=== PATIENT | female | born 1965 | race Caucasian/White ===

== ENCOUNTER 2016-10-10 19:04 | Emergency (ER) | payer OTHER ==
[~2016-10-10] VITALS: Ht 162.6 cm; Wt 104.0 kg
[~2016-10-10 19:04] MED LIST: ADVAIR 250/501 DISK IH; ADVAIR HFA120 INHAL1 IH; ADVAIR HFA120 INHALA IH; ALBUTEROL17 GM IH; ALBUTEROL2.5 MG/3 M IH; Advair HFA 115/21 IH; BACTRIM,SEPT1 TABLET PO; BUPROPION XL300 MG PO; CLEOCIN150 MG PO; DELTASONE20 MG PO; DUONEB 2.5-0.5 M3 ML IH; DUONEB3 ML IH; FLEXERIL10 MG PO; FLEXERIL5 MG PO; HYCODAN SYRUP480 ML PO; IBUPROFEN800 MG PO; INDOCIN25 MG PO; LEVAQUIN750 MG PO; MELATONIN10 M1 PO; NAPROSYN500 MG PO; NASONEX17 GM NS; NORCO 5/3251 TABLET PO; NORCO 7.5/321 TABLET PO; OMEPRAZOLE20 MG PO; PERCOCET 5/31 TABLET PO; PREDNISONE10 M1 PO; PREDNISONE10 MG PO; PREDNISONE20 MG PO; PRILOSEC40 MG PO; PROAIR HFA8.5 GM IH; PROMETHAZINE HC25 M1 PO; PROTONIX40 MG PO; RANITIDINE HCL; RANITIDINE HCL150 MG PO; TESSALON200 MG PO; TRAZODONE HCL100 MG PO; ULTRAM50 MG PO; VALIUM10 MG PO; VICODIN 5-3001 EACH PO; WELLBUTRIN XL300 MG PO; ZITHROMAX Z-PA250 MG PO; ZITHROMAX250 MG PO
[2016-10-10 19:44] LABS: HEMATOCRIT 36.6 % (36.0-46.0); MCHC 33.3 G/DL (30.0-36.0); MCV 83.9 FL (83-99); MEAN PLAT.VOLUME 10.4 uM^3 (9.5-12.4); PLATELET COUNT 296 K/uL (156-360); RBC DIS.WIDTH-CV 13.2 % (11.8-14.6); RBC DIS.WIDTH-SD 39.5 % (39-53); RED BLOOD COUNT 4.36 M/uL (3.80-5.20); WHITE BLOOD COUNT 7.1 K/uL (4.1-10.2)
[2016-10-10 19:57] LABS: CHLORIDE 107 mEq/L (99-109); POTASSIUM 3.3 mEq/L (3.7-5.4); SODIUM 141 mEq/L (136-147)
[2016-10-10 19:59] LABS: GLUCOSE 110 mg/dL (70-99)
[2016-10-10 20:00] LABS: ANION GAP 8 MEQ/L (2-14)
[2016-10-10 20:03] LABS: GFR ESTIMATE (CALCULATED) > 59 mL/min/
[2016-10-10 20:04] LABS: UREA NITROGEN (BUN) 5 mg/dL (9-23)
[2016-10-10 22:18] LABS: INFLUENZA A VIRAL ANTIGEN NEGATIVE; INFLUENZA B VIRAL ANTIGEN NEGATIVE
[2016-10-10] MEDS ORDERED: PREDNISONE20 MG PO (22:32)
[2016-10-10 22:55] VITALS: BP 140/69
== END 2016-10-10 22:57 | disposition home or self-care (01) ==
LOC: RME 19:04 → EME 19:04 → RME 22:57
PROVIDERS: Nurse Practitioner Family
DX: J06.9 Acute upper respiratory infection, unspecified (principal); J45.909 Unspecified asthma, uncomplicated; F17.200 Nicotine dependence, unspecified, uncomplicated
CPT/HCPCS: 71020; 80048; 85027; 87502; 93005; 94640; 99281; 99284; J7512

== ENCOUNTER 2016-12-16 14:59 | Emergency (ER) | payer OTHER ==
[~2016-12-16] VITALS: Ht 162.6 cm; Wt 106.2 kg
[2016-12-16 15:43] LABS: HEMATOCRIT 40.6 % (36.0-46.0); MCH 27.9 PG (29.0-34.0); MCHC 33.5 G/DL (30.0-36.0); MCV 83.4 FL (83-99); MEAN PLAT.VOLUME 10.5 uM^3 (9.5-12.4); PLATELET COUNT 274 K/uL (156-360); RBC DIS.WIDTH-CV 12.4 % (11.8-14.6); RBC DIS.WIDTH-SD 37.6 % (39-53); RED BLOOD COUNT 4.87 M/uL (3.80-5.20); WHITE BLOOD COUNT 6.6 K/uL (4.1-10.2)
[2016-12-16 15:50] LABS: ADD MIUA? YES; BILIRUBIN NEGATIVE; BLOOD MODERATE; COLOR STRAW ((YELLOW)); GLUCOSE (STRIP) NEGATIVE; KETONES NEGATIVE; LEUKOCYTES NEGATIVE; NITRITE NEGATIVE; PROTEIN (STRIP) NEGATIVE; SPECIFIC GRAVITY 1.004 (1.000-1.030); UROBILINOGEN 0.2 MG/DL (0.2-1.0)
[2016-12-16 15:56] LABS: BACTERIA RARE /HPF; EPITHELIAL CELLS RARE /HPF; MUCUS NONE SEEN /LPF; RED BLOOD CELLS 0-5 /HPF (0-5); UCUL ADDED? NO; WHITE BLOOD CELLS 0-5 /HPF (0-5)
[2016-12-16 16:05] LABS: CHLORIDE 103 mEq/L (99-109); POTASSIUM 3.2 mEq/L (3.7-5.4); SODIUM 138 mEq/L (136-147)
[2016-12-16 16:08] LABS: GLUCOSE 116 mg/dL (70-99)
[2016-12-16 16:09] LABS: ANION GAP 8 MEQ/L (2-14)
[2016-12-16 16:10] LABS: TOTAL BILIRUBIN 0.9 mg/dL (0.0-1.0)
[2016-12-16 16:11] LABS: ALKALINE PHOSPHATASE 88 IU/L (3-129); GFR ESTIMATE (CALCULATED) > 59 mL/min/
[2016-12-16 16:12] LABS: UREA NITROGEN (BUN) 7 mg/dL (9-23)
[2016-12-16 17:32] LABS: INFLUENZA A VIRAL ANTIGEN NEGATIVE; INFLUENZA B VIRAL ANTIGEN NEGATIVE
[2016-12-16] MEDS ORDERED: BENTYL20 MG PO (18:12)
[2016-12-16] MEDS ORDERED: ZOFRAN ODT4 MG PO (18:12)
[2016-12-16] MEDS ORDERED: BACLOFEN10 MG PO (18:12)
[2016-12-16 18:17] VITALS: BP 135/779
== END 2016-12-16 18:35 | disposition home or self-care (01) ==
LOC: EME 14:59
PROVIDERS: Nurse Practitioner Family
DX: A08.4 Viral intestinal infection, unspecified (principal); E87.6 Hypokalemia; Z87.891 Personal history of nicotine dependence
CPT/HCPCS: 71020; 74020; 80053; 81003; 85027; 87502; 99281; 99284; J1885

== ENCOUNTER 2017-02-12 19:33 | Emergency (ER) | payer OTHER ==
[~2017-02-12 19:33] MED LIST changes: +BACLOFEN10 MG PO; +BENTYL20 MG PO; +ZOFRAN ODT4 MG PO
== END 2017-02-12 19:48 | disposition left against medical advice (07) ==
LOC: EME 19:33
DX: R06.9 Unspecified abnormalities of breathing (principal); Z53.21 Procedure and treatment not carried out due to patient leaving prior to being seen by health care provider

== ENCOUNTER 2017-05-14 10:57 | Emergency (ER) | payer OTHER ==
[~2017-05-14] VITALS: Ht 162.6 cm; Wt 107.0 kg
[2017-05-14] MEDS ORDERED: PREDNISONE20 MG PO (14:42)
[2017-05-14 15:00] VITALS: BP 157/85
== END 2017-05-14 15:00 | disposition home or self-care (01) ==
LOC: EME 10:57
DX: J40 Bronchitis, not specified as acute or chronic (principal); F17.200 Nicotine dependence, unspecified, uncomplicated; I10 Essential (primary) hypertension
CPT/HCPCS: 71020

== ENCOUNTER 2017-05-30 | Emergency (ER) | payer OTHER ==
[~2017-05-30] VITALS: Ht 162.6 cm; Wt 105.3 kg
[2017-05-30 02:47] VITALS: BP 147/93
== END 2017-05-30 02:49 | disposition home or self-care (01) ==
LOC: EME
DX: R21 Rash and other nonspecific skin eruption (principal); F17.200 Nicotine dependence, unspecified, uncomplicated
CPT/HCPCS: 99281; 99285; J1100

== ENCOUNTER 2017-11-18 22:28 | Emergency (ER) | payer OTHER ==
[~2017-11-18] VITALS: Ht 162.6 cm; Wt 105.2 kg
[2017-11-18 22:53] LABS: HEMATOCRIT 38.4 % (36.0-46.0); HEMOGLOBIN 12.8 G/DL (11.9-15.5); MCH 28.6 PG (29.0-34.0); MCHC 33.3 G/DL (30.0-36.0); MCV 85.9 FL (83-99); PLATELET COUNT 319 K/uL (156-360); RBC DIS.WIDTH-CV 13.4 % (11.8-14.6); RBC DIS.WIDTH-SD 41.9 % (39-53); RED BLOOD COUNT 4.47 M/uL (3.80-5.20); WHITE BLOOD COUNT 9.7 K/uL (4.1-10.2)
[2017-11-18 23:02] LABS: CHLORIDE 105 mEq/L (99-109); POTASSIUM 4.1 mEq/L (3.7-5.4); SODIUM 140 mEq/L (136-147)
[2017-11-18 23:04] LABS: GLUCOSE 199 mg/dL (70-99)
[2017-11-18 23:08] LABS: CREATININE 0.9 mg/dL (0.6-1.3); GFR ESTIMATE (CALCULATED) > 59 mL/min/
[2017-11-18 23:09] LABS: UREA NITROGEN (BUN) 12 mg/dL (9-23)
[2017-11-18 23:14] LABS: TROP-I INTERPRETATION NEGATIVE; TROPONIN-I < 0.01 ng/mL (0.0-0.30)
[2017-11-19] MEDS ORDERED: SINGULAIR10 MG PO (01:45)
[2017-11-19] MEDS ORDERED: HYCODAN SYRUP480 ML PO (01:45)
[2017-11-19 02:30] VITALS: BP 124/72
== END 2017-11-19 02:33 | disposition home or self-care (01) ==
LOC: EME 22:28
DX: J20.9 Acute bronchitis, unspecified (principal); J45.909 Unspecified asthma, uncomplicated; F17.200 Nicotine dependence, unspecified, uncomplicated; Z88.6 Allergy status to analgesic agent; Z88.0 Allergy status to penicillin; Z88.5 Allergy status to narcotic agent
CPT/HCPCS: 71046; 71250; 80048; 84484; 85027; 93005; 94640; 99281; 99285; J1100

== ENCOUNTER 2018-02-14 10:47 | Emergency (ER) | payer OTHER ==
[~2018-02-14] VITALS: Ht 162.6 cm; Wt 105.3 kg
[~2018-02-14 10:47] MED LIST changes: +SINGULAIR10 MG PO
[2018-02-14 11:46] LABS: BASOPHIL (%) 0.4 % (0-1); EOSINOPHIL (%) 2.7 % (0-5); EOSINOPHIL COUNT 0.2 K/uL (0-0.3); HEMATOCRIT 38.3 % (36.0-46.0); IMMATURE GRANULOCYTE (%) 0.4 % (0.0-0.7); LYMPHOCYTE (%) 24.3 % (15-42); LYMPHOCYTE COUNT 1.9 K/uL (1.0-2.8); MCH 29.5 PG (29.0-34.0); MCHC 33.9 G/DL (30.0-36.0); MCV 86.8 FL (83-99); MONOCYTE (%) 8.5 % (3-12); MONOCYTE COUNT 0.7 K/uL (0-0.8); NEUTROPHIL (%) 63.7 % (45-76); NEUTROPHIL COUNT 4.9 K/uL (1.8-6.4); PLATELET COUNT 262 K/uL (156-360); RBC DIS.WIDTH-CV 12.6 % (11.8-14.6); RBC DIS.WIDTH-SD 40.1 % (39-53); RED BLOOD COUNT 4.41 M/uL (3.80-5.20); WHITE BLOOD COUNT 7.7 K/uL (4.1-10.2)
[2018-02-14 11:56] LABS: ALBUMIN 4.1 g/dL (3.2-4.8); CHLORIDE 103 mEq/L (99-109); POTASSIUM 3.2 mEq/L (3.7-5.4); SODIUM 141 mEq/L (136-147)
[2018-02-14 11:59] LABS: GLUCOSE 123 mg/dL (70-99); TOTAL PROTEIN 6.9 g/dL (6.4-8.3)
[2018-02-14 12:01] LABS: TOTAL BILIRUBIN 0.6 mg/dL (0.0-1.0)
[2018-02-14 12:02] LABS: ALKALINE PHOSPHATASE 101 IU/L (3-129); CREATININE 0.9 mg/dL (0.6-1.3); GFR ESTIMATE (CALCULATED) > 59 mL/min/
[2018-02-14 12:03] LABS: UREA NITROGEN (BUN) 10 mg/dL (9-23)
[2018-02-14 12:04] LABS: AST (GOT) 20 IU/L (2-34)
[2018-02-14 12:05] LABS: ALT (GPT) 18 IU/L (3-49)
[2018-02-14 12:07] LABS: TROP-I INTERPRETATION NEGATIVE; TROPONIN-I < 0.01 ng/mL (0.0-0.30)
[2018-02-14 14:09] LABS: TROP-I INTERPRETATION NEGATIVE; TROPONIN-I < 0.01 ng/mL (0.0-0.30)
[2018-02-14] MEDS ORDERED: ULTRAM50 MG PO (14:40)
[2018-02-14 14:50] VITALS: BP 110/68
== END 2018-02-14 14:52 | disposition home or self-care (01) ==
LOC: EME 10:47
PROVIDERS: Emergency Medicine
DX: M79.605 Pain in left leg (principal); M79.89 Other specified soft tissue disorders; R07.89 Other chest pain; F17.210 Nicotine dependence, cigarettes, uncomplicated; J45.909 Unspecified asthma, uncomplicated; Z79.51 Long term (current) use of inhaled steroids; Z87.19 Personal history of other diseases of the digestive system; Z86.14 Personal history of Methicillin resistant Staphylococcus aureus infection; Z98.890 Other specified postprocedural states; Z90.49 Acquired absence of other specified parts of digestive tract; Z90.710 Acquired absence of both cervix and uterus; Z83.2 Family history of diseases of the blood and blood-forming organs and certain disorders involving the immune mechanism; Z88.5 Allergy status to narcotic agent; Z88.0 Allergy status to penicillin; Z88.6 Allergy status to analgesic agent
CPT/HCPCS: 71046; 73564; 80053; 84484; 85025; 85379; 93005; 93971; 94640; 99281; 99284